=== PATIENT | male | born 1970 | race Caucasian/White ===

== ENCOUNTER → 2018-02-22 | Emergency (ER) | payer OTHER ==
[2018-02-22 01:41] LABS: ETHANOL < 10.0 mg/dl
[2018-02-22 01:41] LABS: SALICYLATE < 1.0 mg/dl (5.0-30.0)
[2018-02-22 01:43] LABS: AMPHETAMINE/METHAMPHETAMINE NEGATIVE (NEGATIVE); BARBITURATES NEGATIVE (NEGATIVE); BENZODIAZEPINES NEGATIVE (NEGATIVE); CANNABINOIDS NEGATIVE (NEGATIVE); COCAINE NEGATIVE (NEGATIVE); OPIATES NEGATIVE (NEGATIVE)
== END | disposition home or self-care (01) ==
LOC: FTE 00:25
DX: Z00.00 Encounter for general adult medical examination without abnormal findings (principal)
CPT/HCPCS: 80307; 99283